=== PATIENT | female | born 1965 | race Caucasian/White ===

== ENCOUNTER 2025-01-23 06:45 | Day surgery (SDC) | payer BC ==
[~2025-01-23 06:45] MED LIST: Morphine 8 MG, EPINEPHrine 0.3 MG, Cefuroxime 750 MG, Ketorolac 30 MG, Sodium Chloride ... PRN; Sodium Chloride 0.9% 10 ML Syringe FLUSH PRN; Sodium Chloride 0.9% 10 ML Syringe FLUSH SCH
[2025-01-23] MEDS ORDERED: fentaNYL 100 MCG/2 ML SDV ONE (06:50)
[2025-01-23] MEDS ORDERED: propofoL 500 MG/50 ML 50 ML ONE (06:50)
[2025-01-23] MEDS ORDERED: Midazolam 1 MG/ML 2 ML SDV ONE (06:50)
[2025-01-23] MEDS ORDERED: Ropivacaine 0.5% 5 MG/ML 30 ML SDV ONE (06:51)
[2025-01-23] MEDS: Lactated Ringers 1,000 ML IV SCH (06:55)
[2025-01-23] MEDS: oxyCODONE ER 10 MG TAB.ER PO ONE (07:04)
[2025-01-23] MEDS: Clindamycin Phosphate in D5W 900 MG in Premix Bag 1 BAG IV ONE (07:05)
[2025-01-23] MEDS ORDERED: fentaNYL 100 MCG/2 ML SDV IVPUSH PRN (07:32)
[2025-01-23] MEDS ORDERED: Lactated Ringers 1,000 ML ONE (08:01)
[2025-01-23] MEDS ORDERED: dexmedeTOMIDine HCl 200 MCG/2 ML SDV ONE (08:11)
[2025-01-23] MEDS ORDERED: Dexamethasone 4 MG/ML 5 ML MDV ONE (08:11)
[2025-01-23] MEDS ORDERED: ePHEDrine 50 MG/ML SDV ONE (08:22)
[2025-01-23] MEDS ORDERED: Phenylephrine 1% 10 MG/ML SDV ONE (08:52)
[2025-01-23] MEDS: Morphine 8 MG, EPINEPHrine 0.3 MG, Ketorolac 30 MG, Sodium Chloride 0.9% 7.9 ML PRN (09:02)
[2025-01-23] MEDS: Ondansetron 4 MG/2 ML SDV IVPUSH PRN (12:00)
== END 2025-01-23 15:05 | disposition home or self-care (01) ==
LOC: JD.SDS 06:45
PROVIDERS: ATTEND Orthopaedic Surgery
DX: M17.11 Unilateral primary osteoarthritis, right knee (principal); E03.9 Hypothyroidism, unspecified; F17.210 Nicotine dependence, cigarettes, uncomplicated; Z88.0 Allergy status to penicillin; Z88.5 Allergy status to narcotic agent; Z88.1 Allergy status to other antibiotic agents; Z86.16 Personal history of COVID-19; Z79.899 Other long term (current) drug therapy; Z79.890 Hormone replacement therapy
CPT/HCPCS: 0055T; 27447; 64454; 73560; 97116; 97161; 97530; A9270; C1713; C1776; J0169; J0736; J1100; J1885; J2250; J2272; J2371; J2405; J2704; J2795; J3010; J3373; J7120; 01402; 64447; J3490